=== PATIENT | male | born 1960 | race Caucasian/White ===

== ENCOUNTER 2016-09-24 07:05 | Emergency (ER) | payer OTHER ==
[~2016-09-24] VITALS: Ht 175.3 cm; Wt 99.8 kg
[2016-09-24] MEDS ORDERED: ONDANSETRON 4MG/2ML VIAL (J2405) IV ONE (08:00)
[2016-09-24] MEDS: MORPHINE 2 MG/ML 1ML SYRINGE IV PRN ×2 (08:01→08:19)
[2016-09-24 08:04] LABS: BASO # 0.1 K/mm3 (0.0-0.2); BASO % 0.7 % (0.0-1.0); EOS # 0.1 K/mm3 (0.0-0.50); LARGE UNSTAINED CELL # 0.1 K/mm3 (0.0-0.4); LARGE UNSTAINED CELL % 1.4 % (0.0-4.0); LYMPH # 1.7 K/mm3 (1.5-4.5); LYMPH % 17.9 % (24.0-44.0); MEAN CORPUSCULAR HEMOGLOBIN 32.8 pg (27.0-33.0); MEAN CORPUSCULAR VOLUME 99.3 fl (80.0-96.0); MONO # 0.4 K/mm3 (0.0-0.8); MONO % 4.5 % (0.0-5.0); NEUTROPHILS # 6.9 K/mm3 (1.8-7.7); NEUTROPHILS % 74.5 % (36.0-66.0); PLATELET COUNT, AUTOMATED 285 k/mm3 (150-450); RED CELL DISTRIBUTION WIDTH 12.6 % (11.5-14.5); WHITE BLOOD COUNT 9.3 K/mm3 (4.0-10.0)
[2016-09-24 08:16] LABS: CREATININE FOR GFR 1.36 MG/DL (0.70-1.30); GLOMERULAR FILTRATION RATE 58.1 (>56); POTASSIUM SERUM 3.8 MEQ/L (3.5-5.1)
[2016-09-24] MEDS ORDERED: KETOROLAC 30 MG/ML VIAL (J1885) IV ONE (08:30)
--- NOTE | 2016-09-24 09:05 | REP ---
Clinical: Left-sided pain. Findings: Acute left-sided obstructive uropathy including perinephric and periureteral stranding with mild hydroureteronephrosis is secondary to a 4 mm calculus at the ureterovesicle junction (image 140). 3 mm nonobstructing left intrarenal calculus is identified along with multiple nonobstructing right renal calculi measuring up to 5 mm. Liver, spleen, pancreas, gallbladder, and bilateral adrenal glands are normal for noncontrast examination. The enteric system is without obstruction or acute inflammatory process. Normal terminal ileum and appendix identified in the right lower quadrant. Few scattered sigmoid diverticula noted without acute diverticulitis. Small fat containing left inguinal hernia. No ascites. No adenopathy. No free air. Abdominal aorta without aneurysm. Musculoskeletal structures demonstrate age-related changes. Impression: 1. Acute left-sided obstructive uropathy with a 4 mm calculus at the ureterovesicle junction. 3 mm nonobstructing left intrarenal calculus and multiple nonobstructing right intrarenal calculi up to 5 mm. 2. Fat containing left inguinal hernia. Signed by Jude Betancur MD 09/24/2016 08:56 A
[2016-09-24] MEDS ORDERED: ZOFR4TAB3 PO (10:36)
[2016-09-24] MEDS ORDERED: FLOM5CAP PO (10:36)
[2016-09-24] MEDS ORDERED: PERC5TAB6 PO (10:36)
[2016-09-24 11:11] VITALS: BP 143/94
== END 2016-09-24 11:12 | disposition home or self-care (01) ==
LOC: M ED 08:25
DX: N20.2 Calculus of kidney with calculus of ureter (principal); K40.90 Unilateral inguinal hernia, without obstruction or gangrene, not specified as recurrent; F17.200 Nicotine dependence, unspecified, uncomplicated
CPT/HCPCS: 74176; 80048; 81001; 85025; 96374; 96375; 99283; J1885; J2405

== ENCOUNTER 2019-10-23 15:05 | Emergency (ER) | payer OTHER ==
[~2019-10-23] VITALS: Ht 175.3 cm; Wt 112.0 kg
[~2019-10-23 15:05] MED LIST: FLOM0.4C39 PO; PERC5TAB12 PO; ZOFR4TAB14 PO
[2019-10-23] MEDS ORDERED: IBUP200T45 PO (15:12)
[2019-10-23] MEDS ORDERED: LOSA100T8 PO (15:12)
[2019-10-23 15:35] LABS: BASO # 0.1 10^3/uL (0.0-0.2); BASO % 0.7 % (0.0-1.0); EOS # 0.1 10^3/uL (0.0-0.5); EOS % 0.8 % (0.0-3.0); HEMATOCRIT 40.4 % (42.0-52.0); HEMOGLOBIN 13.8 g/dl (13.5-17.5); LYMPH # 2.6 10^3/uL (1.5-5.0); MEAN CORPUSCULAR HEMOGLOBIN 32.3 pg (27.0-33.0); MEAN CORPUSCULAR HGB CONC 34.2 g/dl (32.0-36.5); MEAN CORPUSCULAR VOLUME 94.6 fl (80.0-96.0); MONO # 0.8 10^3/uL (0.0-0.8); MONO % 7.5 % (0.0-5.0); NEUTROPHILS # 7.2 10^3/uL (1.5-8.5); NEUTROPHILS % 66.4 % (36.0-66.0); PLATELET COUNT, AUTOMATED 257 10^3/uL (150-450); RED BLOOD COUNT 4.27 10^6/uL (4.30-6.10); WHITE BLOOD COUNT 10.9 10^3/uL (4.0-10.0)
[2019-10-23 16:04] LABS: ALBUMIN 3.5 GM/DL (3.2-5.2); BILIRUBIN,DIRECT 0.1 MG/DL (0.0-0.2); BILIRUBIN,TOTAL 0.2 MG/DL (0.2-1.0); TOTAL PROTEIN 6.9 GM/DL (6.4-8.2)
[2019-10-23 16:50] LABS: CALCIUM LEVEL 8.8 MG/DL (8.5-10.1); CREATININE FOR GFR 1.42 MG/DL (0.70-1.30); GLOMERULAR FILTRATION RATE 54.7 (>56); POTASSIUM SERUM 3.9 MEQ/L (3.5-5.1)
[2019-10-23] MEDS ORDERED: ONDANSETRON 4MG/2ML VIAL IV ONE (18:00)
[2019-10-23] MEDS ORDERED: NS 1,000 ML IV ONE (18:00)
[2019-10-23] MEDS ORDERED: MORPHINE 4 MG/ML 1ML VIAL/SYRINGE (J2270) IV ONE (18:00)
[2019-10-23 18:33] VITALS: BP 144/94
[2019-10-23] MEDS ORDERED: NORC1TAB7 PO (19:12)
[2019-10-23] MEDS ORDERED: FLOM0.4C39 PO (19:12)
--- NOTE | 2019-11-15 02:38 | REP ---
REASON FOR EXAM: Right-sided pain. COMPARISON EXAM: 09/24/2016 This examination was formerly interpreted by Dr. Betancur; however, due to technical problems, the examination could not be formally transcribed. It has been brought to my attention for the first time for reinterpretation today at this time. At the time the examination was interpreted, a right-sided distal ureteral calculus was noted, causing obstructive uropathy. This was seen in conjunction with bilateral nephroliths. Lung bases are clear and unchanged. Once again, there are bilateral nephroliths, status quo. There is new perinephric stranding on the right with mild hydronephrosis and hydroureter. The hydroureter can be followed distally to the level of the distal ureter approximately 2-3 cm proximal to the ureterovesical junction, where a 4 mm sized calculus resides. There are no other significant findings or changes from the prior exam. Electronically Signed by Pj Rosado DO 11/15/2019 09:13 A
== END 2019-10-23 19:31 | disposition home or self-care (01) ==
LOC: M ED 15:05
DX: N20.0 Calculus of kidney (principal); I10 Essential (primary) hypertension; Z79.899 Other long term (current) drug therapy
CPT/HCPCS: 74176; 80048; 80076; 81001; 83690; 85025; 96361; 96374; 96375; 99284; J2270; J2405

== ENCOUNTER → 2025-02-19 | Outpatient (REF) | payer OTHER ==
[~2025-02-19] MED LIST changes: +D-101000 PO; -FLOM0.4C39 PO; +IBUP200T46 PO; +LOSA100T8 PO; +LOSA25TA13 PO; +NORC1TAB7 PO; +OMEP40CA5 PO; +TAMS-18 PO
== END ==
LOC: M LAB REF 17:44
PROVIDERS: ATTEND Otolaryngology
DX: C02.9 Malignant neoplasm of tongue, unspecified (principal)

== ENCOUNTER → 2025-02-28 | Outpatient (CLI) | payer OTHER ==
[2025-02-28 14:07] LABS: CREATININE FOR GFR 1.02 MG/DL (0.70-1.30); GLOMERULAR FILTRATION RATE 82.6 (>49)
== END ==
LOC: M PLALAB 09:42
PROVIDERS: ATTEND Otolaryngology
DX: C02.9 Malignant neoplasm of tongue, unspecified (principal)

== ENCOUNTER → 2025-03-03 | Outpatient (CLI) | payer OTHER ==
[~2025-03-03] MED LIST changes: +ISOVUE-370 76% 100 ML VIAL ONE
== END ==
LOC: M PLAIMG 13:12
PROVIDERS: ATTEND Otolaryngology
DX: C02.9 Malignant neoplasm of tongue, unspecified (principal); J35.8 Other chronic diseases of tonsils and adenoids
CPT/HCPCS: 70491; Q9967

== ENCOUNTER → 2025-03-10 | Outpatient (CLI) | payer OTHER ==
[~2025-03-10] MED LIST changes: -ISOVUE-370 76% 100 ML VIAL ONE
== END ==
LOC: M PLARAD 12:28
PROVIDERS: ATTEND Otolaryngology
DX: C02.9 Malignant neoplasm of tongue, unspecified (principal)
CPT/HCPCS: 78815; A9552